=== PATIENT | female | born 1990 | race Two or more races ===

== ENCOUNTER 2021-02-07 14:40 | Emergency (ER) | payer SELFPAY ==
[~2021-02-07] VITALS: Ht 154.9 cm; Wt 145.1 kg
[2021-02-07 16:45] VITALS: BP 139/84
[2021-02-07] MEDS ORDERED: methylPREDNISolone SOD SUCC 125 MG/2 ML VL IM ONE (17:00)
[2021-02-07] MEDS ORDERED: cefTRIAXone SOD 1,000 MG VL IM ONE ×2 (17:00)
== END 2021-02-07 18:29 | disposition home or self-care (01) ==
LOC: ER 14:40
DX: J18.9 Pneumonia, unspecified organism (principal); J03.90 Acute tonsillitis, unspecified; E66.9 Obesity, unspecified; Z68.43 Body mass index [BMI] 50.0-59.9, adult
CPT/HCPCS: 71046; 96372; 99284; J0696; J2930

== ENCOUNTER 2021-02-21 08:47 | Emergency (ER) | payer MEDICAID, OTHER ==
[~2021-02-21] VITALS: Ht 157.5 cm; Wt 154.2 kg
[2021-02-21 09:41] LABS: Basophils # (auto) 0.1 10 ^3/uL (0-0.2); Eosinophils # (auto) 0.1 10 ^3/uL (0-0.8); Eosinophils % (auto) 1.2 % (0.0-7.0); Hematocrit 38.6 % (36.0-46.0); Lymphocytes # (auto) 2.1 10 ^3/uL (0.4-5.4); Lymphocytes % (auto) 23.3 % (10.0-50.0); Mean Corpuscular Hemoglobin 28.6 pg (28.0-32.0); Mean Corpuscular Hgb Conc. 33.6 g/dL (32.0-36.0); Mean Corpuscular Volume 85.1 fL (80.0-100.0); Monocytes # (auto) 0.5 10 ^3/uL (0-1.3); Monocytes % (auto) 5.7 % (0.0-12.0); Neutrophils # (auto) 6.1 10 ^3/uL (1.6-8.6); Neutrophils % (auto) 68.8 % (37.0-80.0); Nucleated Red Blood Cells % 0.1 %; Red Blood Cells 4.53 10^6/uL (4.0-5.20); Red Cell Distribution Width 14.8 % (11.8-14.3); White Blood Cell 8.8 10^3/uL (4.4-10.8)
[2021-02-21 09:49] LABS: Calcium 8.5 mg/dL (8.5-10.1); Potassium 4.3 mmol/L (3.5-5.1)
[2021-02-21 09:53] LABS: Bilirubin, Total 0.2 mg/dL (0.2-1.0); Total Protein 8.2 g/dL (6.4-8.2)
[2021-02-21 18:22] VITALS: BP 135/81
== END 2021-02-21 19:36 | disposition home or self-care (01) ==
LOC: ER 08:47
DX: R06.02 Shortness of breath (principal); R05 Cough; E66.2 Morbid (severe) obesity with alveolar hypoventilation; E46 Unspecified protein-calorie malnutrition; Z68.44 Body mass index [BMI] 60.0-69.9, adult; Z20.822 Contact with and (suspected) exposure to COVID-19
CPT/HCPCS: 36415; 71045; 80053; 84702; 85025; 87426